=== PATIENT | female | born 1995 | race Two or more races ===

== ENCOUNTER 2016-09-26 11:05 | Emergency (ER) | payer SELFPAY ==
[2016-09-26] MEDS ORDERED: AMOX875T PO (12:18)
--- NOTE | 2016-09-26 12:19 | PHYS DOC ---
Past Medical History Past Medical History: Asthma Past Surgical History: No Surgical History Alcohol Use: None Drug Use: None Adult General Chief Complaint Chief Complaint: SORE THROAT HPI HPI Patient is a 20 year old female with history of asthma who presents today with cough, sore throat, bilateral ear pain, and nasal congestion for 3 days. Patient denies any fever. Review of Systems Review of Systems Constitutional: see HPI Eyes: Denies change in visual acuity, redness, or eye pain [] HENT: nasal congestion and sore throat [] Respiratory: cough Cardiovascular: No additional information not addressed in HPI [] GI: Denies abdominal pain, nausea, vomiting, bloody stools or diarrhea [] : Denies dysuria or hematuria [] Musculoskeletal: Denies back pain or joint pain [] Integument: Denies rash or skin lesions [] Neurologic: Denies headache, focal weakness or sensory changes [] Endocrine: Denies polyuria or polydipsia [] Allergies Allergies Allergies Coded Allergies Type Severity Reaction Last Updated Verified No Known Drug Allergies 06/22/14 No Physical Exam Physical Exam Constitutional: Well developed, well nourished, no acute distress, non-toxic appearance. [] HENT: Normocephalic, atraumatic, bilateral external ears normal, oropharynx moist, no oral exudates, nose normal. [] Bilateral TM are moderately injected. Posterior pharynx with mild erythema and right side exudate. Eyes: PERRLA, EOMI, conjunctiva normal, no discharge. [] Neck: Normal range of motion, no tenderness, supple, no stridor. [] Cardiovascular:Heart rate regular rhythm, no murmur [] Lungs & Thorax: Bilateral breath sounds clear to auscultation [] Abdomen: Bowel sounds normal, soft, no tenderness, no masses, no pulsatile masses. [] Skin: Warm, dry, no erythema, no rash. [] Back: No tenderness, no CVA tenderness. [] Extremities: No tenderness, no cyanosis, no clubbing, ROM intact, no edema. [] Neurologic: Alert and oriented X 3, normal motor function, normal sensory function, no focal deficits noted. [] Psychologic: Affect normal, judgement normal, mood normal. [] EKG EKG [] Radiology/Procedures Radiology/Procedures [] Course & Med Decision Making Course & Med Decision Making Pertinent Labs and Imaging studies reviewed. (See chart for details) Patient has bilateral otitis media, pharyngitis, and an upper respiratory infection. Discharged with amoxicillin for 10 days. Tylenol/Motrin recommended for pain or fever. Follow-up with primary care doctor in one week. Saltwater gargles also recommended. Provided return precautions and discharged in stable condition. Dragon Disclaimer Dragon Disclaimer This electronic medical record was generated, in whole or in part, using a voice recognition dictation system. Departure Departure Impression: Primary Impression: Pharyngitis, acute Additional Impressions: Otitis media Cough Upper respiratory infection Disposition: HOME, SELF-CARE Condition: STABLE Referrals: NO PCP (PCP) follow up with your doctor in one week Patient Instructions: Cough, Adult, [id number], Otitis Media, Adult, Easy-to- Read, Viral and Bacterial Pharyngitis Additional Instructions: You were seen for ear infection, cough, congestion, and pharyngitis. Please complete your antibiotics. Take Tylenol /Motrin for pain no fever. Follow-up with your own doctor in 1-2 weeks. Come back to the emergency room if symptoms worsen. Use salt water gurgles Scripts Amoxicillin 875 Mg Tablet1 Tab PO BID #20 TAB Prov:[facility] [employer] 09/26/16 Problem Qualifiers Primary Impression: Pharyngitis, acute Pharyngitis/tonsillitis etiology: unspecified etiology Qualified Code: J02.9 - Acute pharyngitis, unspecified Additional Impressions: Otitis media Otitis media type: other nonsuppurative Laterality: bilateral Chronicity: acute Recurrence: not specified as recurrent Qualified Code: H65.193 - Other acute nonsuppurative otitis media, bilateral Upper respiratory infection URI type: unspecified URI Qualified Code: J06.9 - Acute upper respiratory infection, unspecified [facility] [employer] Sep 26, 2016 12:19
[2016-09-26 12:41] VITALS: BP 124/63
[2016-09-26 14:22] LABS: NEGATIVE OBC STREP NEG; POSITIVE OBC STREP POS
== END 2016-09-26 12:45 | disposition home or self-care (01) ==
LOC: ER 11:05
DX: J02.9 Acute pharyngitis, unspecified (principal); H65.193 Other acute nonsuppurative otitis media, bilateral; J06.9 Acute upper respiratory infection, unspecified; J45.909 Unspecified asthma, uncomplicated
CPT/HCPCS: 87070; 87880; 99284